=== PATIENT | male | born 1950 | race Caucasian/White ===

== ENCOUNTER 2025-02-16 05:08 | Inpatient (IN) | payer MEDICARE, OTHER ==
[~2025-02-16] VITALS: Ht 185.4 cm; Wt 88.9 kg
[2025-02-16 05:51] LABS: PLATELET COUNT (AUTO) 127 K/uL (150-450); RED BLOOD CELL COUNT(AUTO) 4.66 MIL/uL (4.5-6.0); RED CELL DISTRIBUTION WIDTH 14.4 % (11.5-15.0); WHITE BLOOD COUNT (AUTO) 21.3 K/uL (4.3-11.0)
[2025-02-16 06:04] LABS: CALCIUM, SERUM 8.4 mg/dL (8.5-10.1); SODIUM SERUM 139 mmol/L (136-145)
[2025-02-16 06:05] LABS: INR 1.16 (0.91-1.10)
[2025-02-16 06:06] LABS: LACTIC ACID 1.8 mmol/L (0.4-2.0)
[2025-02-16 06:12] LABS: SERUM AMMONIA 4 umol/L (11-32)
[2025-02-16 06:13] LABS: ASPARTATE AMINOTRANSFERASE 247 U/L (15-37); CREATININE 1.9 mg/dL (0.6-1.3); TOTAL PROTEIN, SERUM 8.3 g/dL (6.4-8.2)
[2025-02-16 06:16] LABS: ALCOHOL, BLOOD < 3 mg/dL (0-10); UREA NITROGEN, BLOOD 85 mg/dL (7-18)
[2025-02-16 06:21] LABS: LYMPHOCYTES % (MANUAL) 5 % (16-48); MONOCYTES % (MANUAL) 9 % (0-11.0); NEUTROPHILS % (MANUAL) 86 (42-76); PLATELET ESTIMATE DECREASED
[2025-02-16] MEDS ORDERED: CEFEPIME 1 GM VIAL ONE (06:26)
[2025-02-16] MEDS: IV LR 1000 ML 1,000 ML BAG IV ONE (06:28)
[2025-02-16] MEDS: CEFEPIME 1 GM in IV D5W 50 ML IV ONE (06:33)
[2025-02-16] MEDS ORDERED: THIAMINE HCL 100 MG TABLET ONE (07:03)
[2025-02-16] MEDS: THIAMINE HCL 100 MG TABLET PO ONE (07:08)
[2025-02-16] MEDS ORDERED: LEVO75TA90 PO (07:44)
[2025-02-16 07:58] LABS: APPEARANCE,URINE CLEAR (CLEAR); BLOOD, URINE 3+ Ery/uL (NEGATIVE); LEUKOCYTE ESTERASE ,URINE NEGATIVE (NEGATIVE); NITRITE, URINE NEGATIVE (NEGATIVE); UGLUCOSE NEGATIVE (NEGATIVE)
[2025-02-16 08:04] LABS: ADD URINE CULTURE NO; AMPHETAMINE, URINE NEGATIVE (NEGATIVE); BARBITURATE, URINE NEGATIVE (NEGATIVE); BENZODIAZEPINE, URINE NEGATIVE (NEGATIVE); CANNABINOID, URINE NEGATIVE (NEGATIVE); COCCAINE, URINE NEGATIVE (NEGATIVE); OPIATE, URINE NEGATIVE (NEGATIVE)
[2025-02-16] MEDS ORDERED: ZOLPIDEM TARTRATE 5 MG TABLET PO PRN (08:30)
[2025-02-16] MEDS ORDERED: Z GUARD REMEDY 4 OZ OINT TP PRN (08:30)
[2025-02-16] MEDS ORDERED: MAGNESIUM HYDROXIDE 30 ML UDC PO PRN (08:30)
[2025-02-16] MEDS ORDERED: ACETAMINOPHEN 325 MG TABLET PO PRN (08:30)
[2025-02-16] MEDS ORDERED: ONDANSETRON HCL/PF 4 MG/2 ML VIAL IVP PRN (08:30)
[2025-02-16] MEDS ORDERED: MAG HYDROX/AL HYDROX/SIMETH 30 ML UDC PO PRN (08:30)
[2025-02-16] MEDS ORDERED: CEFEPIME 2 GM in IV D5W 100 ML IV SCH (09:00)
[2025-02-16 13:30] VITALS: BP 144/80; TEMP 97.9; O2SAT 95
[2025-02-16] MEDS: CEFEPIME 2 GM in IV D5W 100 ML IV SCH (14:41)
[2025-02-16] MEDS: IV NS 0.9% 1,000 ML IV PRN (14:41)
[2025-02-16 19:35] LABS: FLOW, VBG 0.00 L/min (0.00-30.00); FRACTIONATED INSPIRED OXYGEN-V 21.0 %; SITE, VBG VBG - N/A; VBG BASE EXCESS -13.5 mmol/L (-2.0-3.0); VBG HCO3 12.3 mmol/L (22.0-29.0); VBG MetHb 0.1 % (0.5-1.5); VBG OXYGEN SATURATION 62.6 % (60.0-85.0); VBG PCO2 28.9 mmHg (38.0-54.0); VBG PH 7.246 (7.320-7.430); VBG PO2 37.6 mmHg (23.0-48.0); VBG TOTAL HEMOGLOBIN 14.4 G/dL (13.5-17.5)
[2025-02-16 20:00] VITALS: BP 124/81; TEMP 98.1; O2SAT 95
[2025-02-17] VITALS: BP 112/74; TEMP 97.7; O2SAT 95
[2025-02-17 04:00] VITALS: BP 113/80; TEMP 98.1; O2SAT 95
[2025-02-17 05:58] LABS: PLATELET COUNT (AUTO) 106 K/uL (150-450); RED BLOOD CELL COUNT(AUTO) 4.09 MIL/uL (4.5-6.0); RED CELL DISTRIBUTION WIDTH 14.2 % (11.5-15.0); WHITE BLOOD COUNT (AUTO) 11.0 K/uL (4.3-11.0)
[2025-02-17 06:08] LABS: ASPARTATE AMINOTRANSFERASE 132.0 U/L (15-37); CALCIUM, SERUM 7.9 mg/dL (8.5-10.1); CREATININE 1.2 mg/dL (0.6-1.3); PHOSPHORUS 1.6 mg/dL (2.5-4.9); SODIUM SERUM 136.0 mmol/L (136-145); TOTAL PROTEIN, SERUM 6.4 g/dL (6.4-8.2); UREA NITROGEN, BLOOD 43.0 mg/dL (7-18)
[2025-02-17 08:00] VITALS: BP 95/61; TEMP 98.1; O2SAT 94
[2025-02-17 08:39] LABS: BAND % (MANUAL) 2 % (0.0-5.0); LYMPHOCYTES % (MANUAL) 12 % (16-48); MONOCYTES % (MANUAL) 18 % (0-11.0); NEUTROPHILS % (MANUAL) 68 (42-76); PLATELET ESTIMATE DECREASED
[2025-02-17] MEDS: K PHOS NEUTRAL 250 MG TABLET PO ONE (15:13)
[2025-02-17 16:00] VITALS: BP 111/61; TEMP 98.8; O2SAT 95
[2025-02-17 20:00] VITALS: BP 111/73; TEMP 98.6; O2SAT 95
[2025-02-17 20:17] VITALS: BP 111/73; TEMP 98.6; O2SAT 95
[2025-02-18] VITALS: BP 108/77; TEMP 98.2; O2SAT 95
[2025-02-18 08:00] VITALS: BP 91/62; TEMP 97.7; O2SAT 96
[2025-02-18 16:00] VITALS: BP 101/64; TEMP 98.6; O2SAT 95
[2025-02-18 20:00] VITALS: BP 101/61; TEMP 99; O2SAT 96
[2025-02-18 21:03] VITALS: BP 101/61; TEMP 99; O2SAT 96
[2025-02-19] VITALS: BP 132/89; TEMP 98.2; O2SAT 92
[2025-02-19 00:37] VITALS: BP 132/89; TEMP 98.2; O2SAT 92
[2025-02-19 04:00] VITALS: BP 125/89; TEMP 98.1; O2SAT 92
[2025-02-19 06:22] LABS: PLATELET COUNT (AUTO) 116 K/uL (150-450); RED BLOOD CELL COUNT(AUTO) 4.16 MIL/uL (4.5-6.0); RED CELL DISTRIBUTION WIDTH 14.2 % (11.5-15.0); WHITE BLOOD COUNT (AUTO) 8.6 K/uL (4.3-11.0)
[2025-02-19 06:47] LABS: ASPARTATE AMINOTRANSFERASE 62.0 U/L (15-37); CALCIUM, SERUM 8.0 mg/dL (8.5-10.1); CREATININE 0.9 mg/dL (0.6-1.3); PHOSPHORUS 2.6 mg/dL (2.5-4.9); SODIUM SERUM 140.0 mmol/L (136-145); TOTAL PROTEIN, SERUM 6.2 g/dL (6.4-8.2); UREA NITROGEN, BLOOD 19.0 mg/dL (7-18)
[2025-02-19 08:30] VITALS: BP 134/89; TEMP 98.2; O2SAT 94
[2025-02-19 11:46] LABS: LYMPHOCYTES % (MANUAL) 26 % (16-48); MONOCYTES % (MANUAL) 7 % (0-11.0); MYELOCYTES % 3 % (0-0); NEUTROPHILS % (MANUAL) 64 (42-76); PLATELET ESTIMATE DECREASED
[2025-02-19 16:00] VITALS: BP 101/70; TEMP 98.2; O2SAT 94
== END 2025-02-19 18:15 | DRG 682 ==
LOC: ER 05:15 → TELE 12:52 → MED 02-19 10:34
PROVIDERS: ADMIT Internal Medicine
DX: N17.0 Acute kidney failure with tubular necrosis (principal); G93.41 Metabolic encephalopathy; N39.0 Urinary tract infection, site not specified; F03.90 Unspecified dementia, unspecified severity, without behavioral disturbance, psychotic disturbance, mood disturbance, and anxiety; K76.9 Liver disease, unspecified; Z79.890 Hormone replacement therapy; R74.01 Elevation of levels of liver transaminase levels; D72.829 Elevated white blood cell count, unspecified; K76.0 Fatty (change of) liver, not elsewhere classified
CPT/HCPCS: 36415; 70450-TC; 71045-TC; 72125-TC; 76705-TC; 80048-TC; 80053-TC; 80076-TC; 81001; 82140-TC; 82803-TC; 82962-TC; 83605-TC; 83690-TC; 83735-TC; 84100-TC; 84443-TC; 84484-TC; 85027-TC; 85730-TC; 87040-TC; 87081-TC; 87086-TC; 97110-TC; 97116-TC; 97530-TC; A4223; G0378; G0480; J0692; J7030; J7050; J7060; J7120